=== PATIENT | male | born 1975 | race Caucasian/White ===

== ENCOUNTER 2024-01-09 17:47 | Emergency (ER) | payer SELFPAY ==
[~2024-01-09] VITALS: Ht 157.5 cm; Wt 82.0 kg
[2024-01-09 17:54] VITALS: O2SAT 99
[2024-01-09] MEDS: SODIUM CHLORIDE 0.9% 1,000 ML IV ONE (18:35)
[2024-01-09] MEDS: ONDANSETRON HCL 4MG/2ML INJ IV STA (18:35)
[2024-01-09] MEDS: KETOROLAC 30MG/ML VIAL IV STA (18:35)
[2024-01-09 18:51] LABS: CLARITY URINE CLOUDY (CLEAR); COLOR URINE YELLOW (YELLOW); GLUCOSE URINE NEGATIVE (NEGATIVE); KETONES URINE TRACE (NEGATIVE); LEUKOCYTE ESTERASE URINE NEGATIVE (NEGATIVE); NITRITE URINE NEGATIVE (NEGATIVE); OCCULT BLOOD URINE TRACE (NEGATIVE); PH URINE 7.5 (4.5-8.0); PROTEIN URINE NEGATIVE (NEGATIVE); SPECIFIC GRAVITY URINE 1.019 (1.005-1.030)
[2024-01-09 19:14] LABS: RBC URINE 0-2 /hpf (0-2); SQUAMOUS EPITHELIAL CELL URINE FEW /lpf (RARE/1+); WBC URINE 0-2 /hpf (0-2)
[2024-01-09 19:15] LABS: AMORPHOUS SEDIMENT URINE 1+ /lpf; BACTERIA URINE 3+
[2024-01-09 19:17] LABS: HEMATOCRIT. 43.4 % (42.0-52.0); LYMPHOCYTES % 16.3 % (20.0-50.0); MEAN CORPUSCULAR HEMOGLOBIN 32.7 pg (28.0-32.0); MEAN CORPUSCULAR HGB CONC 34.7 g/dL (31.0-37.0); MEAN CORPUSCULAR VOLUME 94.3 fL (80.0-94.0); MEAN PLATELET VOLUME 8.3 fl (7.4-10.4); MONOCYTES % 7.1 % (2.0-8.0); NEUTROPHILS % 73.6 % (40.0-76.0); PLATELET 220 x1000/uL (130-400); RED CELL DISTRIBUTION WIDTH 13.7 % (11.6-14.6); WHITE BLOOD COUNT 8.5 x1000/uL (4.5-11.0)
[2024-01-09 19:20] LABS: CHLORIDE 109 mEq/L (98-107); POTASSIUM 3.3 mEq/L (3.5-5.1); SODIUM 141 mEq/L (136-145)
[2024-01-09 19:21] LABS: CARBON DIOXIDE 25 mEq/L (21-32)
[2024-01-09 19:25] LABS: PROTHROMBIN TIME 11.3 sec (9.6-11.0)
[2024-01-09 19:26] LABS: GLUCOSE 120 mg/dL (70-105); UREA NITROGEN BLOOD 18 mg/dL (9-23)
[2024-01-09] MEDS ORDERED: NAPR-679 MT (20:05)
[2024-01-09] MEDS ORDERED: TAMS-11 MT (20:05)
[2024-01-09 20:45] VITALS: BP 131/77; PULSE 64; RESP 18; TEMP 98.1
== END 2024-01-09 21:13 | disposition home or self-care (01) ==
LOC: ER 17:51
DX: N20.0 Calculus of kidney (principal)
CPT/HCPCS: 99285; 74176; 96374; 96361; 96375; 80048; 81003; 85025; 85610; 36415; J1885; J2405; J7030

== ENCOUNTER 2024-02-06 17:04 | Emergency (ER) | payer MEDICAID ==
[~2024-02-06] VITALS: Ht 172.7 cm; Wt 91.0 kg
[~2024-02-06 17:04] MED LIST: NAPR-679 MT; TAMS-11 MT
[2024-02-06 17:06] VITALS: O2SAT 98
[2024-02-06 19:05] LABS: CLARITY URINE CLEAR (CLEAR); COLOR URINE YELLOW (YELLOW); GLUCOSE URINE NEGATIVE (NEGATIVE); KETONES URINE 2+ (NEGATIVE); LEUKOCYTE ESTERASE URINE NEGATIVE (NEGATIVE); NITRITE URINE NEGATIVE (NEGATIVE); OCCULT BLOOD URINE 3+ (NEGATIVE); PROTEIN URINE NEGATIVE (NEGATIVE); UROBILINOGEN URINE 0.2 E.U./dL (0.2-1.0)
[2024-02-06 19:25] LABS: BACTERIA URINE TRACE; RBC URINE 25-50 /hpf (0-2); SQUAMOUS EPITHELIAL CELL URINE FEW /lpf (RARE/1+); WBC URINE 0-2 /hpf (0-2)
[2024-02-06] MEDS: SODIUM CHLORIDE 0.9% 1,000 ML IV ONE (20:50)
[2024-02-06] MEDS: KETOROLAC 30MG/ML VIAL IV ONE (20:57)
[2024-02-07] MEDS ORDERED: ONDA4TAB50 MT (00:35)
[2024-02-07] MEDS ORDERED: TAMS-11 MT (00:35)
[2024-02-07] MEDS ORDERED: TOPUD MT (00:35)
[2024-02-07] MEDS ORDERED: IBUP-1525 MT (00:35)
[2024-02-07 00:40] VITALS: BP 138/75; PULSE 66; RESP 19; TEMP 36.78072; O2SAT 100
== END 2024-02-07 00:43 | disposition home or self-care (01) ==
LOC: ER 17:04
DX: N23 Unspecified renal colic (principal); Z79.899 Other long term (current) drug therapy
CPT/HCPCS: 81003; 74176; 96361; 96374; 99285; J1885; J7030; Z7610